=== PATIENT | male | born 1965 | race Caucasian/White ===

== ENCOUNTER 2017-06-22 11:22 | Emergency (ER) | payer MEDICAID ==
[~2017-06-22] VITALS: Ht 165.1 cm; Wt 92.1 kg
[2017-06-22 11:32] VITALS: BP 135/64
--- NOTE | 2017-06-22 11:36 | NUR ---
PT AA&OX4, VSS AT THIS TIME. PT TO LOBBY AWAITING OPEN BED.
--- NOTE | 2017-06-22 12:54 | NUR ---
AAO PT AMBULATED TO OF4
--- NOTE | 2017-06-22 12:56 | NUR ---
51M BIB FAMILY C/O RT HAND AND RT ANKLE PAIN S/P FALL X 2 DAYS AGO. PT STATES NO LOC AT TIME OF INCIDENT. HX: PT DENIES RX: PT DENIES; DENIES N/V/D; SKIN IS PINK/WARM/DRY; AAOX4 WITH EVEN AND STEADY GAIT; LUNGS CLEAR BL; HR EVEN AND REGULAR; PT DENIES ANY FEVER, CP, SOB, OR COUGH AT THIS TIME; PATIENT STATES PAIN OF 5/10 AT THIS TIME; VSS; PATIENT POSITIONED FOR COMFORT; HOB ELEVATED; BEDRAILS UP X2; BED DOWN. ER MD MADE AWARE OF PT STATUS.
--- NOTE | 2017-06-22 13:35 | NUR ---
PT TAKEN OFF THE UNIT FOR XRAY VIA WHEEL CHAIR BY GRAPHICS PROGRAMMER
[2017-06-22 14:39] VITALS: BP 102/66
--- NOTE | 2017-06-22 14:39 | NUR ---
Patient discharged with v/s stable. Written and verbal after care instructions given and explained. Patient alert, oriented and verbalized understanding of instructions. Ambulatory with steady gait. All questions addressed prior to discharge. ID band removed. Patient advised to follow up with PMD. Rx of NORCO, MOTRIN given. Patient educated on indication of medication including possible reaction and side effects. Opportunity to ask questions provided and answered.
== END 2017-06-22 14:39 | disposition home or self-care (01) ==
LOC: EDBD 11:22 → MED 11:22
DX: S66.911A Strain of unspecified muscle, fascia and tendon at wrist and hand level, right hand, initial encounter (principal); R03.0 Elevated blood-pressure reading, without diagnosis of hypertension; W01.0XXA Fall on same level from slipping, tripping and stumbling without subsequent striking against object, initial encounter; Y93.89 Activity, other specified; Y92.89 Other specified places as the place of occurrence of the external cause; Y99.8 Other external cause status
CPT/HCPCS: 73110; 99284

== ENCOUNTER 2017-06-29 11:38 | Emergency (ER) | payer MEDICAID ==
[~2017-06-29] VITALS: Ht 167.6 cm; Wt 92.1 kg
[2017-06-29 12:02] VITALS: BP 119/63
--- NOTE | 2017-06-29 15:14 | NUR ---
patient left without dc instruction and prescriptipn
== END 2017-06-29 15:14 | disposition home or self-care (01) ==
LOC: MED 11:38
DX: S63.501D Unspecified sprain of right wrist, subsequent encounter (principal); X58.XXXD Exposure to other specified factors, subsequent encounter
CPT/HCPCS: 73130; 99284

== ENCOUNTER 2017-09-26 12:04 | Emergency (ER) | payer MEDICAID ==
[~2017-09-26] VITALS: Ht 167.6 cm; Wt 90.9 kg
[2017-09-26 12:10] VITALS: BP 136/93
--- NOTE | 2017-09-26 12:15 | NUR ---
PT AMBULATES TO CHAIR D
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
--- NOTE | 2017-09-26 12:36 | NUR ---
Patient being evaluated by physician at bedside.
[2017-09-26] MEDS ORDERED: cefTRIAXone 1,000 MG in LIDOCAINE 1% ***ER ONLY *** 2.1 ML IM ONE (13:05)
[2017-09-26] MEDS ORDERED: KETOROLAC 60 MG/2 ML VIAL IM ONE (13:05)
[2017-09-26] MEDS ORDERED: cefTRIAXone 1,000 MG VIAL ONE (13:20)
[2017-09-26 14:06] VITALS: BP 141/98
--- NOTE | 2017-09-26 14:06 | NUR ---
Patient discharged with v/s stable. Written and verbal after care instructions given and explained. Patient alert, oriented and verbalized understanding of instructions. Ambulatory with steady gait. All questions addressed prior to discharge. ID band removed. Patient advised to follow up with PMD. Rx of KETOROLAC, CLINDAMYCIN given. Patient educated on indication of medication including possible reaction and side effects. Opportunity to ask questions provided and answered. Addendum: 09/26/17 at 1410 by GENEVIEVEARO ADVISED TO GO TO DR [facility] NEXT DOOR FOR FOREIGN BODY EXTRACTION
== END 2017-09-26 14:06 | disposition home or self-care (01) ==
LOC: MED 12:04
DX: S40.022A Contusion of left upper arm, initial encounter (principal); W22.8XXA Striking against or struck by other objects, initial encounter; Y93.89 Activity, other specified; Y92.89 Other specified places as the place of occurrence of the external cause; Y99.8 Other external cause status
CPT/HCPCS: 73060; 90471; 90715; 96372; 99284; J0696; J1885; J2001

== ENCOUNTER 2017-12-22 09:01 | Emergency (ER) | payer MEDICAID ==
[~2017-12-22] VITALS: Ht 157.5 cm; Wt 93.9 kg
[2017-12-22 09:06] VITALS: BP 124/76
--- NOTE | 2017-12-22 09:10 | NUR ---
PT AMBULATED TO BED 3. UA CUP PROVIDED.
--- NOTE | 2017-12-22 09:11 | NUR ---
REPORT GIVEN TO BRENDA GARCIA.
--- NOTE | 2017-12-22 09:22 | NUR ---
PT. CAN NOT PROVIDE URINE AT THIS TIME, PROVIDED WITH A CUP OF WATER WILL CONTINUE TO MONITOR. RAZ VEGA NOTIFIED
[2017-12-22 10:02] LABS: BASOPHILS % (AUTO) 0.8 % (0.0-2.0); EOSINOPHILS # (AUTO) 0.1 K/uL (0-0.4); EOSINOPHILS % (AUTO) 1.9 % (0.0-4.0); HEMATOCRIT 45.6 % (36-52); HEMOGLOBIN 15.7 g/dL (12.0-18.0); LYMPHOCYTES # (AUTO) 1.4 K/uL (2.0-11.5); LYMPHOCYTES % (AUTO) 24.2 % (20.5-51.1); MEAN CORPUSCULAR HEMOGLOBIN 31 pg (27-31); MEAN CORPUSCULAR HGB CONC 34 g/dL (33-37); MEAN CORPUSCULAR VOLUME 89.8 fL (80-94); MONOCYTES # (AUTO) 0.4 K/uL (0.8-1.0); MONOCYTES % (AUTO) 7.8 % (1.7-9.3); NEUTROPHILS # (AUTO) 3.7 K/uL (1.8-7.7); NEUTROPHILS % (AUTO) 65.3 % (42.2-75.2); PLATELET COUNT (AUTO) 202 K/uL (140-450); RED BLOOD CELL COUNT(AUTO) 5.08 MIL/uL (4.20-6.10); RED CELL DISTRIBUTION WIDTH 13.1 % (11.6-13.7); WHITE BLOOD COUNT (AUTO) 5.7 K/uL (4.8-10.8)
[2017-12-22] MEDS ORDERED: KETOROLAC 30 MG/ML VIAL IVP ONE (10:10)
[2017-12-22] MEDS ORDERED: NACL 0.9% 1,000 ML IV ONE (10:10)
[2017-12-22 10:15] LABS: ANION GAP 12.1 (8-16); CARBON DIOXIDE 27.9 mmol/L (21-32); CREATININE 0.9 mg/dL (0.7-1.3)
[2017-12-22 10:16] LABS: PROTHROMBIN TIME 10.4 secs (10.8-13.4)
[2017-12-22 10:21] LABS: ALBUMIN 3.6 g/dL (3.4-5.0); TOTAL BILIRUBIN 0.4 mg/dL (0.0-1.0)
--- NOTE | 2017-12-22 10:35 | NUR ---
PT. RESTING COMFORTABLY IN BED, RR EVEN AND UNLABORED. WILL CONTINUE TO MONITOR. FAMILY AT BEDSIDE
--- NOTE | 2017-12-22 11:30 | NUR ---
PT. TAKEN TO CT SCAN AT THIS TIME JACK WHEELCHAIR BY TECH
[2017-12-22 11:56] LABS: APPEARANCE,URINE CLEAR (CLEAR); BILIRUBIN,URINE NEGATIVE (NEGATIVE); BLOOD, URINE NEGATIVE (NEGATIVE); COLOR,URINE YELLOW (YELLOW); LEUKOCYTE ESTERASE ,URINE NEGATIVE (NEGATIVE); NITRITE, URINE NEGATIVE (NEGATIVE); UGLUCOSE NEGATIVE (NEGATIVE)
--- NOTE | 2017-12-22 12:30 | NUR ---
PT. RESTING COMFORTABLY IN BED, RR EVEN AND UNLABORED. WILL CONTINUE TO MONITOR. DAUGHTER AT BEDSIDE.
[2017-12-22 13:29] VITALS: BP 119/81
--- NOTE | 2017-12-22 13:29 | NUR ---
Patient discharged with v/s stable. Written and verbal after care instructions given and explained. Patient alert, oriented and verbalized understanding of instructions. Ambulatory with steady gait. All questions addressed prior to discharge. ID band removed. Patient advised to follow up with PMD. Rx of Cyclobenzaprine and Diclofenac given. Patient educated on indication of medication including possible reaction and side effects. Opportunity to ask questions provided and answered.
== END 2017-12-22 13:29 | disposition home or self-care (01) ==
LOC: MED 09:01
DX: M62.830 Muscle spasm of back (principal)
CPT/HCPCS: 36415; 74176; 80053; 81003; 84484; 85025; 85610; 85730; 93005; 96374; 99285; J1885; J7030

== ENCOUNTER 2018-11-19 22:25 | Emergency (ER) | payer MEDICAID ==
[~2018-11-19] VITALS: Ht 165.1 cm; Wt 87.1 kg
[2018-11-19 22:52] VITALS: BP 115/86
--- NOTE | 2018-11-19 22:57 | NUR ---
PT AMBULATED BACK TO LOBBYMANOJ
--- NOTE | 2018-11-19 23:00 | NUR ---
PT AMBULATED TO BED 3
--- NOTE | 2018-11-19 23:11 | NUR ---
BIB FAMILY. PT C/O LEFT KNEE PAIN X 4 MONTHS. PT FELL AND NEVER GOT IT CHECKED. PTHAS PAIN 8/10. PT HAS MILD SWELLING AND REDNESS TO SIGHT. FULL ROM OF KNEE AND ANKLE. +CMS.
--- NOTE | 2018-11-20 00:41 | NUR ---
Dr. Schulte evaluating patient at bedside.
[2018-11-20] MEDS ORDERED: KETOROLAC 60 MG/2 ML VIAL IM ONE (00:45)
--- NOTE | 2018-11-20 00:48 | NUR ---
MEDICATED PER [facility] ORDER, TOLERATED WELL.
[2018-11-20 01:41] VITALS: BP 115/86
== END 2018-11-20 01:42 | disposition home or self-care (01) ==
LOC: MED 22:25
DX: M25.562 Pain in left knee (principal); W19.XXXA Unspecified fall, initial encounter; Y93.89 Activity, other specified; Y92.89 Other specified places as the place of occurrence of the external cause; Y99.8 Other external cause status
CPT/HCPCS: 73562; 96372; 99283; J1885

== ENCOUNTER 2019-02-02 09:28 | Emergency (ER) | payer MEDICAID ==
[~2019-02-02] VITALS: Ht 165.1 cm; Wt 86.8 kg
[2019-02-02 09:35] VITALS: BP 134/73
[2019-02-02] MEDS: IBUPROFEN 600 MG TAB PO ONE (10:00)
[2019-02-02 10:08] VITALS: BP 134/73
== END 2019-02-02 10:08 | disposition home or self-care (01) ==
LOC: MED 09:28
DX: S93.402A Sprain of unspecified ligament of left ankle, initial encounter (principal); W11.XXXA Fall on and from ladder, initial encounter; Y93.89 Activity, other specified; Y92.89 Other specified places as the place of occurrence of the external cause; Y99.8 Other external cause status
CPT/HCPCS: 73610; 99283; Q0092

== ENCOUNTER 2020-07-05 12:21 | Emergency (ER) | payer MEDICAID ==
[~2020-07-05] VITALS: Ht 167.6 cm; Wt 81.6 kg
[2020-07-05 12:33] VITALS: BP 135/83
--- NOTE | 2020-07-05 13:25 | NUR ---
EKG PERFORMED IN TRIAGE ROOM. EKG READS SINUS RHYTHM @ 56
[2020-07-05 13:41] LABS: BASOPHILS # (AUTO) 0.1 K/uL (0.00-0.22); BASOPHILS % (AUTO) 1.1 % (0.0-2.0); EOSINOPHILS # (AUTO) 0.1 K/uL (0-0.4); EOSINOPHILS % (AUTO) 1.1 % (0.0-4.0); HEMATOCRIT 46.4 % (36-52); HEMOGLOBIN 15.9 g/dL (12.0-18.0); LYMPHOCYTES % (AUTO) 16.4 % (20.5-51.1); MEAN CORPUSCULAR HEMOGLOBIN 31 pg (27-31); MEAN CORPUSCULAR HGB CONC 34 g/dL (33-37); MEAN CORPUSCULAR VOLUME 89.6 fL (80-94); MONOCYTES # (AUTO) 0.5 K/uL (0.8-1.0); NEUTROPHILS # (AUTO) 4.3 K/uL (1.8-7.7); NEUTROPHILS % (AUTO) 72.4 % (42.2-75.2); PLATELET COUNT (AUTO) 264 K/uL (140-450); RED BLOOD CELL COUNT(AUTO) 5.18 MIL/uL (4.20-6.10); RED CELL DISTRIBUTION WIDTH 14.4 % (11.6-13.7)
[2020-07-05 13:57] LABS: ALBUMIN 4.4 g/dL (3.4-5.0); ANION GAP 12.4 (8-16); CARBON DIOXIDE 28.4 mmol/L (21-32); POTASSIUM 3.8 mmol/L (3.5-5.1); TOTAL BILIRUBIN 0.7 mg/dL (0.0-1.0)
[2020-07-05 15:09] VITALS: BP 135/83
--- NOTE | 2020-07-05 15:11 | NUR ---
Patient discharged with v/s stable. Written and verbal after care instructions given and explained. Patient verbalized understanding. Ambulatory with steady gait. All questions addressed prior to discharge. Advised to follow up with PMD.
== END 2020-07-05 15:11 | disposition home or self-care (01) ==
LOC: MED 12:21
DX: M79.10 Myalgia, unspecified site (principal); F43.9 Reaction to severe stress, unspecified; F41.9 Anxiety disorder, unspecified; R03.0 Elevated blood-pressure reading, without diagnosis of hypertension
CPT/HCPCS: 36415; 80053; 85025; 93005; 99284

== ENCOUNTER 2021-05-14 14:28 | Emergency (ER) | payer MEDICAID ==
[~2021-05-14] VITALS: Ht 162.6 cm; Wt 78.9 kg
[2021-05-14 14:34] VITALS: BP 137/102
[2021-05-14] MEDS ORDERED: KETOROLAC 30 MG/ML VIAL IM ONE (15:20)
[2021-05-14] MEDS ORDERED: NAPR-54 PO (15:22)
[2021-05-14 15:46] VITALS: BP 137/102
== END 2021-05-14 15:45 | disposition home or self-care (01) ==
LOC: MED 14:28
DX: M25.511 Pain in right shoulder (principal)
CPT/HCPCS: 73030; 96372; 99283; J1885

== ENCOUNTER 2022-03-09 19:16 | Emergency (ER) | payer MEDICAID, OTHER ==
[~2022-03-09] VITALS: Ht 167.6 cm; Wt 81.6 kg
[~2022-03-09 19:16] MED LIST: NAPR-54 PO
[2022-03-09 19:45] VITALS: BP 120/73
--- NOTE | 2022-03-09 19:50 | NUR ---
TO LOBBY FOLLOWING TRIAGE
--- NOTE | 2022-03-09 20:10 | NUR ---
PT TAKEN TO RADIOLOGY VIA
--- NOTE | 2022-03-09 20:11 | NUR ---
PT PLACED IN ROOM 11
--- NOTE | 2022-03-09 20:23 | NUR ---
PT WALKED IN C/O RIGHT HAND/ 1ST/2ND DIGIT PAIN X3 WEEKS. PT STATES HE LANDED AND PLACED ALL HIS BODY WEIGHT ON THE TWO FINGERS. +MILD SWELLING, +MILD LIMITED ROM. PT DENIES TAKING MEDICATION FOR PAIN EFFICIENCY EXPERT.
--- NOTE | 2022-03-09 22:55 | NUR ---
JENNIE WRAP X 1 TO R HAND + CMS
[2022-03-09 23:37] VITALS: BP 121/69
== END 2022-03-09 23:37 | disposition home or self-care (01) ==
LOC: MED 19:16
DX: S69.91XA Unspecified injury of right wrist, hand and finger(s), initial encounter (principal); F17.200 Nicotine dependence, unspecified, uncomplicated; X58.XXXA Exposure to other specified factors, initial encounter; Y93.89 Activity, other specified; Y92.89 Other specified places as the place of occurrence of the external cause; Y99.8 Other external cause status
CPT/HCPCS: 73130; 99283

== ENCOUNTER 2023-06-23 11:03 | Emergency (ER) | payer OTHER ==
[~2023-06-23] VITALS: Ht 167.6 cm; Wt 72.6 kg
[2023-06-23 11:26] VITALS: BP 127/76; PULSE 84; RESP 18; TEMP 98; O2SAT 98
[2023-06-23] MEDS ORDERED: CYCLOBENZAPRINE 10 MG TAB PO ONE (11:35)
[2023-06-23] MEDS ORDERED: KETOROLAC 30 MG/ML VIAL IM ONE (11:35)
[2023-06-23] MEDS ORDERED: ACET-10509 PO (13:15)
[2023-06-23] MEDS ORDERED: IBUP-1842 PO (13:15)
[2023-06-23 13:23] VITALS: BP 125/72; PULSE 84; RESP 18; TEMP 98; O2SAT 98
== END 2023-06-23 13:16 | disposition home or self-care (01) ==
LOC: MED 11:03
DX: R51.9 Headache, unspecified (principal); Z79.899 Other long term (current) drug therapy
CPT/HCPCS: 70450; 96372; 99285; J1885